=== PATIENT | male | born 1950 | race Caucasian/White ===

== ENCOUNTER 2017-12-30 11:49 | Emergency (ER) | payer MEDICARE ==
[~2017-12-30] VITALS: Ht 188 cm; Wt 104.3 kg
[~2017-12-30 11:49] MED LIST: ASA81BEC PO; CHROMIUM PICO200 MCG PO; COLACE100 MG PO; FENTANYL PATCH75 MCG TRANSDERM; IBUPROFEN 800800 M1 PO; LEXAPRO 10 MG T10 M1 PO; LIDODERM 5%1 PATC1 TRANSDERM; MAGNESIUM GLUCONATE PO; MIRALAX17 GM PO; MUCINEX TA600 MG/TA2 PO; MULTIVITAMINS1 EAC7 PO; NAPROSYN500 M1 PO; NASADROPS15 ML NASAL; NEURONTIN 300300 M1 PO; NEURONTIN600 MG PO; NORCO 10-325 T1 EACH PO; NORVASC5 MG PO; OMEGA-31000 M1 PO; OXYCONTIN20 M1 PO; PROTONIX40 M1 PO; RELISTOR12 MG/0.2 SUBQ; REMERON15 MG PO; REQUIP4 MG PO; RESTORIL15 MG PO; SENNA PO; SENOKOT-S1 TA1 PO; SORINE 80 MG TA80 M1 PO; URECHOLINE 10 M10 M1 PO; VALIUM5 MG PO; VENTOLIN HFA 1818 GM INH; VITAMIN B-12500 MCG PO; VITAMIN D1000 UNI1 PO; VITAMINC500 PO; WELLBUTRIN 100100 MG PO
[2017-12-30 14:45] VITALS: BP 127/72
== END 2017-12-30 14:47 | disposition home or self-care (01) ==
LOC: M.ERS 11:49
DX: S92.515A Nondisplaced fracture of proximal phalanx of left lesser toe(s), initial encounter for closed fracture (principal); S00.33XA Contusion of nose, initial encounter; M25.511 Pain in right shoulder; Z88.8 Allergy status to other drugs, medicaments and biological substances; W01.0XXA Fall on same level from slipping, tripping and stumbling without subsequent striking against object, initial encounter; Y93.89 Activity, other specified; Y92.89 Other specified places as the place of occurrence of the external cause; Y99.8 Other external cause status